=== PATIENT | male | born 1955 | race American Indian/Alaskan Native ===

== ENCOUNTER 2024-07-23 12:40 | Day surgery (SDC) | payer MEDICARE, MEDICAID, SELFPAY ==
[2024-07-22 14:00] VITALS: BMI 29.1
[2024-07-23] VITALS (11 sets, daily range): BP systolic 119–165; BP diastolic 71–95; PULSE 62–87; RESP 15–21; TEMP 36.3–36.6; O2SAT 94–99; BMI 28.8
[2024-07-23] MEDS: RINGERS LACTATED 1000 ML 1,000 ML 100 ML IV (14:21)
[2024-07-23] MEDS: fentaNYL CIT INJ 50 mCg/ML AMP 2ML (ASD USE ONLY) IVP (14:24)
[2024-07-23] MEDS: DiphenhydrAMINE INJ 50 MG/ML VIAL 25 MG IVP (14:40)
[2024-07-23] MEDS: MIDAZOLAM INJ 1 MG/ML VIAL 2 ML (ASD USE ONLY) 2 MG IVP (14:40)
--- NOTE | 2024-07-23 15:03 | SUR.PHASEII ---
PATIENT DRINKING APPLE JUICE AND EATING YOLANDA CRACKERS WITH NO DIFFICULTY OR COMPLAINTS OF PAIN/NAUSEA. PATIENT ACTIVELY PASSING FLATUS.
== END 2024-07-23 15:31 | disposition home or self-care (01) ==
PROVIDERS: PCP Student in an Organized Health Care Education/Training Program; Referring Provider Surgery; Visit Provider Surgery
PROC: 0DBE8ZX Excision of Large Intestine, Via Natural or Artificial Opening Endoscopic, Diagnostic (ICD-10-PCS; CPT 45380; principal; 2024-07-23 14:30)
DX: Z12.11 Encounter for screening for malignant neoplasm of colon (principal); K63.5 Polyp of colon
CPT/HCPCS: 45380; A4217; J1200; J2250; J3010; J7120